=== PATIENT | female | born 1960 | race African-American/Black ===

== ENCOUNTER 2016-10-13 14:09 | Emergency (ER) | payer MEDICARE, OTHER ==
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
[2016-10-13 16:13] VITALS: BP 170/86
== END 2016-10-13 16:11 | disposition home or self-care (01) ==
LOC: ER 14:09 → EDBD 14:09 → ER 16:11
DX: M54.2 Cervicalgia (principal); M54.9 Dorsalgia, unspecified; M25.569 Pain in unspecified knee; I10 Essential (primary) hypertension; E11.9 Type 2 diabetes mellitus without complications; V87.7XXA Person injured in collision between other specified motor vehicles (traffic), initial encounter
CPT/HCPCS: 72050; 99284

== ENCOUNTER 2017-01-15 00:23 | Emergency (ER) | payer OTHER, MEDICARE ==
[2017-01-15] MEDS ORDERED: OXYCODONE-ACETAMINOPHEN 5-325 MG TABLET PO ONE (01:51)
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
[2017-01-15] MEDS ORDERED: HYDROCODONE/ACETAMINOPHEN 5-325 MG 6 TAB/DSPK PO PRN (02:49)
--- NOTE | 2017-01-15 02:49 | RADIOLOGY REPORT (SQ) ---
EXAM DESCRIPTION: ANKLE RIGHT COMPLETE COMPLETED DATE/TIME: 01/15/2017 2:40 am REASON FOR STUDY: injury COMPARISON: None. NUMBER OF VIEWS: Three views. TECHNIQUE: AP, lateral, and oblique radiographic images acquired of the right ankle. LIMITATIONS: None. FINDINGS: MINERALIZATION: Normal. BONES: No acute fracture or dislocation. No worrisome bone lesions. Small plantar faucial enthesoph yte. JOINTS: No effusions. SOFT TISSUES: Mild diffuse ankle swelling. OTHER: No other significant finding. IMPRESSION: Mild swelling. TECHNICAL DOCUMENTATION: JOB ID: [id number] [employer]- All Rights Reserved
--- NOTE | 2017-01-15 02:50 | RADIOLOGY REPORT (SQ) ---
EXAM DESCRIPTION: WRIST RIGHT 3 VIEWS COMPLETED DATE/TIME: 01/15/2017 2:40 am REASON FOR STUDY: injury COMPARISON: None. NUMBER OF VIEWS: Three views. TECHNIQUE: AP, lateral, and oblique radiographic images acquired of the right wrist. LIMITATIONS: None. FINDINGS: MINERALIZATION: Normal. BONES: No acute fracture or dislocation. No worrisome bone lesions. Normal alignment. Small subcho ndral degenerative cyst or chronic erosion of the lunate at the scapholunate joint. SOFT TISSUES: No soft tissue swelling. No foreign body. OTHER: No other significant finding. IMPRESSION: No acute findings. 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 TECHNICAL DOCUMENTATION: JOB ID: [id number] [employer]- All Rights Reserved
[2017-01-15] MEDS ORDERED: METOCLOPRAMIDE HCL ORAL SOLN 10 MG/10 ML UDCUP PO ONE (02:55)
[2017-01-15] MEDS ORDERED: MAG HYDROX/AL HYDROX/SIMETH SUSP 30 ML UDCUP PO ONE (02:55)
[2017-01-15] MEDS ORDERED: LIDOCAINE 2% VISCOUS SOLN 20 ML UDCUP PO ONE (02:55)
[2017-01-15 03:04] VITALS: BP 140/80
== END 2017-01-15 03:05 | disposition home or self-care (01) ==
LOC: ER 00:23
DX: S16.1XXA Strain of muscle, fascia and tendon at neck level, initial encounter (principal); S63.501A Unspecified sprain of right wrist, initial encounter; S93.401A Sprain of unspecified ligament of right ankle, initial encounter; V89.2XXA Person injured in unspecified motor-vehicle accident, traffic, initial encounter; I10 Essential (primary) hypertension; E11.9 Type 2 diabetes mellitus without complications; Z90.710 Acquired absence of both cervix and uterus
CPT/HCPCS: 99283; 73610; 73110; L3984

== ENCOUNTER 2017-02-19 11:26 | Emergency (ER) | payer MEDICARE, OTHER ==
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
[2017-02-19 12:13] LABS: APPEARANCE,URINE CLOUDY; BILIRUBIN,URINE NEGATIVE (NEGATIVE); GLUCOSE, URINE >=500 mg/dL (NEGATIVE); KETONES,URINE TRACE mg/dL (NEGATIVE); LEUKOCYTE ESTERASE,URINE SMALL (NEGATIVE); NITRITE,URINE NEGATIVE (NEGATIVE); PROTEIN,URINE 100 mg/dL (NEGATIVE); URINE SPECIFIC GRAVITY 1.029; UROBILINOGEN,URINE NEGATIVE mg/dL (<2.0)
[2017-02-19] MEDS ORDERED: CEFTRIAXONE INJ 1000 MG VIAL IM ONE (12:24)
[2017-02-19] MEDS ORDERED: AMOXICILLIN TR/POT CLAVULANATE 500-125 MG TAB PO ONE (12:27)
[2017-02-19] MEDS ORDERED: LIDOCAINE 1% INJ-PF (10 MG/ML) 30 ML SDV INJ ONE (12:27)
[2017-02-19 13:10] VITALS: BP 176/88
== END 2017-02-19 13:07 | disposition home or self-care (01) ==
LOC: ER 11:26
DX: N39.0 Urinary tract infection, site not specified (principal); R31.9 Hematuria, unspecified; G89.29 Other chronic pain; M54.5 Low back pain; V49.9XXS Car occupant (driver) (passenger) injured in unspecified traffic accident, sequela; I10 Essential (primary) hypertension; E11.9 Type 2 diabetes mellitus without complications
CPT/HCPCS: 99283; 96372; 87086; 87088; 81001; 87186; A9270; J3490; J0696

== ENCOUNTER 2017-08-13 12:19 | Emergency (ER) | payer MEDICARE, OTHER ==
[2017-08-13] MEDS ORDERED: CLONIDINE HCL 0.2 MG TABLET PO ONE (13:04)
[2017-08-13] MEDS ORDERED: OXYCODONE-ACETAMINOPHEN 5-325 MG TABLET PO ONE (13:04)
--- NOTE | 2017-08-13 13:06 | ER Document Report ---
ED Medical Screen (RME) - General Chief Complaint: Leg Pain Stated Complaint: LEFT LEG PAIN Time Seen by Provider: 08/13/17 12:56 Mode of Arrival: Ambulatory Information source: Patient Notes: 57-year-old female presents with complaints of left foot pain. Patient denies any fevers or chills. Patient's pains been going on for 2-3 weeks admits to high blood pressure and that she takes pills twice a day I have greeted and performed a rapid initial assessment of this patient. A comprehensive ED assessment and evaluation of the patient, analysis of test results and completion of the medical decision making process will be conducted by additional ED providers. PHYSICAL EXAMINATION: GENERAL: Well-appearing, well-nourished and in no acute distress. HEAD: Atraumatic, normocephalic. EYES: Pupils equal round extraocular movements intact, conjunctiva are normal. ENT: Nares patent NECK: Normal range of motion LUNGS: No respiratory distress Musculoskeletal: tender left foot NEUROLOGICAL: Normal speech, normal gait. PSYCH: Normal mood, normal affect. SKIN: Warm, Dry, normal turgor, no rashes or lesions noted. TRAVEL OUTSIDE OF THE [place] IN LAST 30 DAYS: No - Related Data Allergies/Adverse Reactions: No Known Allergies Allergy (Verified 08/13/17 12:22) Past Medical History - Social History Frequency of alcohol use: None Drug Abuse: None - Past Medical History Cardiac Medical History: Reports: Hx Hypertension Endocrine Medical History: Reports: Hx Diabetes Mellitus Type 2 Renal/ Medical History: Denies: Hx Peritoneal Dialysis Past Surgical History: Reports: Hx Appendectomy, Hx Hysterectomy, Hx Tonsillectomy - Immunizations Hx Diphtheria, Pertussis, Tetanus Vaccination: Yes Physical Exam - Vital signs Vitals: Temp Pulse Resp BP Pulse Ox 98.1 F 84 16 220/105 H 96 08/13/17 12:29 08/13/17 12:29 08/13/17 12:29 08/13/17 12:29 08/13/17 12:29 Course - Vital Signs Vital signs: Temp Pulse Resp BP Pulse Ox 98.1 F 84 18 220/105 H 96 08/13/17 12:29 08/13/17 12:29 08/13/17 12:54 08/13/17 12:29 08/13/17 12:29
--- NOTE | 2017-08-13 13:58 | ER Document Report ---
ED General - General Mode of Arrival: Ambulatory Information source: Patient TRAVEL OUTSIDE OF THE [place] IN LAST 30 DAYS: No - HPI Onset: Other <IRINA CHANG - Last Filed: 08/13/17 14:04> <GÉNESIS HORTON - Last Filed: 08/13/17 15:57> - General Chief Complaint: Leg Pain Stated Complaint: LEFT LEG PAIN Time Seen by Provider: 08/13/17 12:56 Notes: Patient is a 57 year old female with a history of hypertension, diabetes, and hyperlipidemia presents to the emergency department complaining of left foot pain onset 3 weeks ago worsening 1 week ago. Patient states that the pain extends from her left hip and into her left leg. Patient also complained of left sided back pain. (IRINA CHANG) - Related Data Allergies/Adverse Reactions: No Known Allergies Allergy (Verified 08/13/17 12:22) Past Medical History - General Information source: Patient - Social History Smoking Status: Never Smoker Frequency of alcohol use: None Drug Abuse: None Family History: Reviewed & Not Pertinent Patient has suicidal ideation: No Patient has homicidal ideation: No - Past Medical History Cardiac Medical History: Reports: Hx Hypertension Endocrine Medical History: Reports: Hx Diabetes Mellitus Type 2 Past Surgical History: Reports: Hx Appendectomy, Hx Hysterectomy, Hx Tonsillectomy - Immunizations Hx Diphtheria, Pertussis, Tetanus Vaccination: Yes <IRINA CHANG - Last Filed: 08/13/17 14:04> Review of Systems - Review of Systems Constitutional: No symptoms reported EENT: No symptoms reported Cardiovascular: No symptoms reported Respiratory: No symptoms reported Gastrointestinal: No symptoms reported Genitourinary: No symptoms reported Female Genitourinary: No symptoms reported Musculoskeletal: See HPI, Back pain Skin: No symptoms reported Hematologic/Lymphatic: No symptoms reported Neurological/Psychological: No symptoms reported -: Yes All other systems reviewed and negative <IRINA CHANG - Last Filed: 08/13/17 14:04> Physical Exam - General General appearance: Appears well, Alert, Other - Patient appears drowsy at bedside. In distress: None - HEENT Head: Normocephalic, Atraumatic Eyes: Normal Conjunctiva: Normal Pupils: PERRL - Respiratory Respiratory status: No respiratory distress - Cardiovascular Rhythm: Regular Heart sounds: Normal auscultation - Abdominal Inspection: Normal - Back Back: Tender - tender to the left lateral scapula - Extremities General upper extremity: Normal ROM General lower extremity: Tender Foot: Tender - tender to left metatarsal head with no swelling - Neurological Neuro grossly intact: Yes Cognition: Normal Orientation: AAOx4 [place] Coma Scale Eye Opening: Spontaneous [place] Coma Scale Verbal: Oriented [place] Coma Scale Motor: Obeys Commands Mojgan Coma Scale Total: 15 Speech: Normal - Psychological Associated symptoms: Normal affect, Normal mood - Skin Skin Temperature: Warm Skin Moisture: Dry Skin Color: Normal <IRINA CHANG - Last Filed: 08/13/17 14:04> <GÉNESIS HORTON - Last Filed: 08/13/17 15:57> - Vital signs Vitals: Temp Pulse Resp BP Pulse Ox 98.1 F 84 16 220/105 H 96 08/13/17 12:29 08/13/17 12:29 08/13/17 12:29 08/13/17 12:29 08/13/17 12:29 - Extremities Notes: Patient screams when palpating anywhere on left leg, particularly the fasica deb. (IRINA CHANG) Course - Laboratory Result Diagrams: 08/13/17 14:05 08/13/17 14:05 <GÉNESIS HOTRON - Last Filed: 08/13/17 15:57> - Vital Signs Vital signs: Temp Pulse Resp BP Pulse Ox 98.6 F 77 65 H 110/68 97 08/13/17 13:14 08/13/17 13:14 08/13/17 15:31 08/13/17 15:31 08/13/17 13:14 - Laboratory Laboratory results interpreted by me: 08/13/17 14:05 BUN 23 H Glucose 213 H AST 13 L Discharge <IRINA CHANG - Last Filed: 08/13/17 14:04> <GÉNESIS HORTON - Last Filed: 08/13/17 15:57> - Discharge Clinical Impression: Musculoskeletal pain of left lower extremity, Dehydration Muscle strain of scapular region Qualifiers: Encounter type: initial encounter Laterality: left Qualified Code(s): S46.912A - Strain of unspecified muscle, fascia and tendon at shoulder and upper arm level, left arm, initial encounter Condition: Stable Disposition: HOME, SELF-CARE Additional Instructions: Muscle Strain You have PROBABLY strained muscles in your left lateral scapular region and your left leg and foot. The seriousness of a strain varies. Some strains heal within days, others cause problems for months. X-rays cannot show a muscle strain. X-rays are taken only if symptoms suggest that a fracture could be present. The usual treatment of a muscle strain is rest and moist heat. The muscle can be used again once pain subsides. Severe strains require a special exercise and stretching program to prevent permanent stiffness and disability. Your doctor will advise you if this will be necessary. Call the doctor immediately if pain or swelling becomes severe, or if numbness or discoloration develop. Dehydration Dehydration can result from vomiting or diarrhea, fever, or decreased intake of fluids. If severe, hospitalization and intravenous fluids may be required. Most cases are treated at home with fluids by mouth. For the next 24 hours, drink lots of clear fluids. Try to get three liters (3 quarts) of fluid per day. //////////////////////////////////////////////////////////////////////////////// //////////////////////////////////////////////////////////////////////////////// ///////////////// The pain in your left scapular region and left lower extremity appears to be due to muscular strain. Your blood pressure dropped quite a bit when you received medication for pain and your elevated blood pressure. This occurred because you are somewhat dehydrated. You should drink plenty of fluids today and tonight. You should rest the muscles in the leg and in your left upper back. Limit walking and do any lifting you need to using the right arm. You are prescribed Tramadol for the pain if needed. Be sure to check your blood sugars regularly. Follow-up with your primary care provider if you are not improving. RETURN TO THE EMERGENCY ROOM IF ANY NEW OR WORSENING SYMPTOMS. Prescriptions: Tramadol HCl 50 mg PO ASDIR PRN #20 tablet PRN Reason: For Pain Referrals: KIANNA MEADE MD [Primary Care Provider] - Follow up as needed Scribe Attestation: 08/13/17 14:20 I personally performed the services described in the documentation, reviewed and edited the documentation which was dictated to the scribe in my presence, and it accurately records my words and actions. (GÉNESIS HORTON) Scribe Documentation - Scribe Written by Scribe:: Keina Michelle, 08/13/2017 14:05 acting as scribe for :: Kane <IRINA CHANG - Last Filed: 08/13/17 14:04>
[2017-08-13 14:19] LABS: ABSOLUTE EOSINOPHILS # (AUTO) 0.1 10^3/uL (0.0-0.6); ABSOLUTE LYMPHOCYTES (AUTO) 2.1 10^3/uL (0.5-4.7); ABSOLUTE MONOCYTES (AUTO) 0.2 10^3/uL (0.1-1.4); ABSOLUTE NEUT (AUTO) 3.4 10^3/uL (1.7-8.2); BASOPHILS % (AUTO) 0.7 % (0-2); EOSINOPHILS % (AUTO) 1.5 % (0-6); HEMATOCRIT 37.4 % (36.0-47.0); HEMOGLOBIN 12.8 g/dL (12.0-15.5); LYMPHOCYTES % (AUTO) 36.3 % (13-45); MEAN CORPUSCULAR HEMOGLOBIN 27.4 pg (27.0-33.4); MEAN CORPUSCULAR HGB CONC 34.3 g/dL (32.0-36.0); MEAN CORPUSCULAR VOLUME 80 fl (80-97); MONOCYTES % (AUTO) 3.6 % (3-13); RED BLOOD COUNT 4.68 10^6/uL (3.72-5.28); RED CELL DISTRIBUTION WIDTH 13.4 % (11.5-14.0); SEGMENTED NEUTROPHILS % (AUTO) 57.9 % (42-78); WHITE BLOOD COUNT 5.8 10^3/uL (4.0-10.5)
[2017-08-13] MEDS ORDERED: NORMAL SALINE 1000 ML 1,000 ML IV ONE ×2 (14:33→15:41)
[2017-08-13 14:38] LABS: ALANINE AMINOTRANSFERASE 24 U/L (9-52); ALBUMIN 4.3 g/dL (3.5-5.0); ALKALINE PHOSPHATASE 106 U/L (38-126); ANION GAP 11 (5-19); ASPARTATE AMINO TRANSFERASE 13 U/L (14-36); BILIRUBIN,DIRECT 0.3 mg/dL (0.0-0.4); BILIRUBIN,TOTAL 0.5 mg/dL (0.2-1.3); BLOOD UREA NITROGEN 23 mg/dL (7-20); CARBON DIOXIDE 27 mmol/L (22-30); CHLORIDE 102 mmol/L (98-107); CREATINE KINASE 50 U/L (30-135); GLUCOSE 213 mg/dL (75-110); POTASSIUM 4.9 mmol/L (3.6-5.0); SODIUM 139.8 mmol/L (137-145); TOTAL PROTEIN 7.6 g/dL (6.3-8.2); URIC ACID 3.6 mg/dL (2.5-7.5)
[2017-08-13 17:16] VITALS: BP 133/79
== END 2017-08-13 17:17 | disposition home or self-care (01) ==
LOC: ER 12:19
DX: S46.912A Strain of unspecified muscle, fascia and tendon at shoulder and upper arm level, left arm, initial encounter (principal); E86.0 Dehydration; M79.605 Pain in left leg; I10 Essential (primary) hypertension; E11.9 Type 2 diabetes mellitus without complications; E78.5 Hyperlipidemia, unspecified; M79.672 Pain in left foot; M25.552 Pain in left hip; M54.9 Dorsalgia, unspecified; X58.XXXA Exposure to other specified factors, initial encounter
CPT/HCPCS: 99283; 96360; 96361; 36415; 82550; 84550; 85025; 80053; A9270 ×2; J7030

== ENCOUNTER 2017-08-25 08:45 | Emergency (ER) | payer MEDICARE ==
[2017-08-25 08:55] VITALS: BP 168/114
[2017-08-25] MEDS ORDERED: HYDROCODONE/ACETAMINOPHEN 5-325 MG TABLET PO ONE (10:42)
[2017-08-25] MEDS ORDERED: LISINOPRIL 5 MG TABLET PO ONE (10:42)
[2017-08-25] MEDS ORDERED: PREDNISONE 20 MG TABLET PO ONE (10:42)
[2017-08-25 21:41] LABS: ABSOLUTE EOSINOPHILS # (AUTO) 0.1 10^3/uL (0.0-0.6); ABSOLUTE LYMPHOCYTES (AUTO) 1.9 10^3/uL (0.5-4.7); ABSOLUTE MONOCYTES (AUTO) 0.2 10^3/uL (0.1-1.4); ABSOLUTE NEUT (AUTO) 3.9 10^3/uL (1.7-8.2); BASOPHILS % (AUTO) 0.8 % (0-2); EOSINOPHILS % (AUTO) 1.3 % (0-6); HEMATOCRIT 37.6 % (36.0-47.0); HEMOGLOBIN 12.9 g/dL (12.0-15.5); MEAN CORPUSCULAR HEMOGLOBIN 27.9 pg (27.0-33.4); MEAN CORPUSCULAR HGB CONC 34.4 g/dL (32.0-36.0); MEAN CORPUSCULAR VOLUME 81 fl (80-97); MONOCYTES % (AUTO) 3.2 % (3-13); PLATELET COUNT 203 10^3/uL (150-450); RED BLOOD COUNT 4.64 10^6/uL (3.72-5.28); RED CELL DISTRIBUTION WIDTH 13.1 % (11.5-14.0); SEGMENTED NEUTROPHILS % (AUTO) 63.7 % (42-78); TOTAL CELLS COUNTED % (AUTO) 100 %; WHITE BLOOD COUNT 6.2 10^3/uL (4.0-10.5)
--- NOTE | 2017-08-26 08:30 | ER Document Report ---
ED General - General Chief Complaint: Leg Pain Stated Complaint: LEFT LEG PAIN Time Seen by Provider: 08/25/17 09:22 Mode of Arrival: Ambulatory Information source: Patient Notes: 57-year-old female presents with 2 separate complaints. Patient notes that her left foot pain has been ongoing now for a few days as well as right upper quadrant abdominal pain over the past 4 days. It is noted that the patient actually has neuropathy and has had foot pain for years but she does not admit to this initially, patient's abdominal pain has been on and off for a week TRAVEL OUTSIDE OF THE [place] IN LAST 30 DAYS: No - HPI Onset: Other Onset/Duration: Intermittent Quality of pain: Burning Severity: Mild Pain Level: 1 Associated symptoms: Other Exacerbated by: Denies Relieved by: Denies Similar symptoms previously: Yes Recently seen / treated by doctor: Yes - Related Data Allergies/Adverse Reactions: ibuprofen [From Motrin] Allergy (Verified 08/25/17 08:47) Past Medical History - Social History Smoking Status: Never Smoker Cigarette use (# per day): No Chew tobacco use (# tins/day): No Smoking Education Provided: No Family History: Reviewed & Not Pertinent - Past Medical History Cardiac Medical History: Reports: Hx Hypertension Endocrine Medical History: Reports: Hx Diabetes Mellitus Type 2 Renal/ Medical History: Denies: Hx Peritoneal Dialysis Past Surgical History: Reports: Hx Appendectomy, Hx Hysterectomy, Hx Tonsillectomy - Immunizations Hx Diphtheria, Pertussis, Tetanus Vaccination: Yes Review of Systems - Review of Systems Notes: REVIEW OF SYSTEMS: CONSTITUTIONAL : Denies fever, chills, or sweats. Denies recent illness. EENT: Denies eye, ear, throat, or mouth pain or symptoms. Denies nasal or sinus congestion or discharge. Denies throat, tongue, or mouth swelling or difficulty swallowing. CARDIOVASCULAR: Denies chest pain. Denies palpitations or racing or irregular heart beat. Denies ankle edema. RESPIRATORY: Denies cough, cold, or chest congestion. Denies shortness of breath, difficulty breathing, or wheezing. GASTROINTESTINAL: Admits to right upper quadrant abdominal pain GENITOURINARY: Denies difficulty urinating, painful urination, burning, frequency, blood in urine, or discharge. FEMALE GENITOURINARY: Denies vaginal bleeding, heavy or abnormal periods, irregular periods. Denies vaginal discharge or odor. MUSCULOSKELETAL: Admits left foot pain SKIN: Denies rash, lesions or sores. HEMATOLOGIC : Denies easy bruising or bleeding. LYMPHATIC: Denies swollen, enlarged glands. NEUROLOGICAL: Denies confusion or altered mental status. Denies passing out or loss of consciousness. Denies dizziness or lightheadedness. Denies headache. Denies weakness or paralysis or loss of use of either side. Denies problems with gait or speech. Denies sensory loss, numbness, or tingling. Denies seizures. PSYCHIATRIC: Denies anxiety or stress. Denies depression, suicidal ideation, or homicidal ideation. ALL OTHER SYSTEMS REVIEWED AND NEGATIVE. PHYSICAL EXAMINATION: GENERAL: Well-appearing, well-nourished and in no acute distress. HEAD: Atraumatic, normocephalic. EYES: Pupils equal round and reactive to light, extraocular movements intact, conjunctiva are normal. ENT: Nares patent, oropharynx clear without exudates. Moist mucous membranes. NECK: Normal range of motion, supple without lymphadenopathy LUNGS: Breath sounds clear to auscultation bilaterally and equal. No wheezes rales or rhonchi. HEART: Regular rate and rhythm without murmurs ABDOMEN: Soft, nontender, nondistended abdomen. No guarding, no rebound. No masses appreciated. No tenderness upon palpation Female : deferred Musculoskeletal: Normal range of motion, no pitting or edema. No cyanosis. NEUROLOGICAL: Cranial nerves grossly intact. Normal speech, normal gait. Normal sensory, motor exams PSYCH: Normal mood, normal affect. SKIN: Warm, Dry, normal turgor, no rashes or lesions noted. Patient states there is pain upon palpation of the foot Dictation was performed using [employer] voice recognition software Physical Exam - Vital signs Vitals: Temp Pulse Resp BP Pulse Ox 98.5 F 80 16 168/114 H 93 08/25/17 08:53 08/25/17 08:53 08/25/17 08:53 08/25/17 08:53 08/25/17 08:53 Course - Re-evaluation Re-evalutation: 08/26/17 08:29 Pulses are intact patient is able to move her digits sensation motor functions appropriate but patient states that is extremely painful upon touch. I extremely low suspicion for any life-threatening issues, on her lab work everything was benign this was consistent with previous lab work from a few days ago. Patient consistently asked for pain medication was given such. It appears she has been treated extensively for this neuropathic pain which initially denied I will have the patient follow-up with her primary care physician, her pain specialist, and her neurologist for further evaluation care After performing a Medical Screening Examination, I estimate there is LOW risk for ACUTE APPENDICITIS, BOWEL OBSTRUCTION, ACUTE CHOLECYSTITIS, PERFORATED DIVERTICULITIS, INCARCERATED HERNIA, PANCREATITIS, PELVIC INFLAMMATORY DISEASE, PERFORATED ULCER, ECTOPIC , or TUBO-OVARIAN ABSCESS, thus I consider the discharge disposition reasonable. Also, there is no evidence or peritonitis , sepsis, or toxicity. I have reevaluated this patient multiple times and no significant life threatening changes are noted. The patient and I have discussed the diagnosis and risks, and we agree with discharging home with close follow-up with the understanding that symptoms and presentations can change. We also discussed returning to the Emergency Department immediately if new or worsening symptoms occur. We have discussed the symptoms which are most concerning (e.g., bloody stool, fever, changing or worsening pain, vomiting) that necessitate immediate return. - Vital Signs Vital signs: Temp Pulse Resp BP Pulse Ox 98.5 F 80 16 168/114 H 93 08/25/17 08:53 08/25/17 08:53 08/25/17 08:53 08/25/17 08:53 08/25/17 08:53 - Laboratory Result Diagrams: 08/25/17 10:43 08/25/17 10:43 Discharge - Discharge Clinical Impression: Abdominal pain, right upper quadrant, Left foot pain Condition: Stable Disposition: HOME, SELF-CARE Instructions: Abdominal Pain ([facility]) Referrals: KIANNA MEADE MD [Primary Care Provider] - Follow up tomorrow
[2017-08-26 11:42] LABS: ALBUMIN 4.2 g/dL (3.5-5.0); ANION GAP 10 (5-19); BLOOD UREA NITROGEN 14 mg/dL (7-20); CALCIUM 9.5 mg/dL (8.4-10.2); CARBON DIOXIDE 30 mmol/L (22-30); CHLORIDE 102 mmol/L (98-107); GLUCOSE 196 mg/dL (75-110); POTASSIUM 3.9 mmol/L (3.6-5.0); SODIUM 141.7 mmol/L (137-145)
[2017-08-26 11:43] LABS: ALANINE AMINOTRANSFERASE 27 U/L (9-52); ALKALINE PHOSPHATASE 96 U/L (38-126); ASPARTATE AMINO TRANSFERASE 13 U/L (14-36); BILIRUBIN,DIRECT 0.2 mg/dL (0.0-0.4); BILIRUBIN,TOTAL 0.6 mg/dL (0.2-1.3)
[2017-08-26 11:44] LABS: TOTAL PROTEIN 7.4 g/dL (6.3-8.2)
[2017-08-26 12:55] LABS: LIPASE 339.2 U/L (23-300)
== END 2017-08-25 13:00 | disposition home or self-care (01) ==
LOC: ER 08:45
DX: R10.11 Right upper quadrant pain (principal); M79.672 Pain in left foot; I10 Essential (primary) hypertension; E11.9 Type 2 diabetes mellitus without complications; Z88.6 Allergy status to analgesic agent; Z90.710 Acquired absence of both cervix and uterus
CPT/HCPCS: 99283; 36415; 83690; 85025; 80053; A9270 ×3; J7512

== ENCOUNTER → 2017-09-11 | Outpatient (CLI) | payer MEDICARE ==
--- NOTE | 2017-09-11 16:05 | WOMENS IMAGING REPORT ---
EXAM DESCRIPTION: BILAT SCREENING MAMMO W/CAD COMPLETED DATE/TIME: 09/11/2017 3:33 pm REASON FOR STUDY: ROUTINE SCREENING; Z12.31 Z12.31 ENCNTR SCREEN MAMMOGRAM FOR MALIGNANT NEOPLASM O F MARISSA COMPARISON: 02/25/2013 and 07/01/2010. TECHNIQUE: Standard craniocaudal and mediolateral oblique views of each breast recorded using digita l acquisition. LIMITATIONS: None. FINDINGS: No masses, calcifications or architectural distortion. No areas of suspicion. Read with the assistance of CAD. .[facility] - R2 Cenova Version 1.3 .[facility] - R2 Cenova Version 1.3 .[facility] - R2 Cenova Version 2.4 .[facility] - R2 Cenova Version 2.4 .[facility] - R2 [employer] Machine Operator Version 9.2 IMPRESSION: NORMAL MAMMOGRAM. BIRADS 1. BREAST DENSITY: b. There are scattered areas of fibroglandular density. BIRAD: 1 NEGATIVE RECOMMENDATION: ROUTINE SCREENING COMMENT: The patient has been notified of the results by letter per MQSA requirements. Additional no tification policies are in place for contacting patient with suspicious or incomplete findings. Quality ID #[id number]: The [employer] recommends an annual screening mammogram for women aged 40 years or over. This facility utilizes a reminder system to ensure that all patients receive reminder letters, and/or direct phone calls for appointments. This includes reminders for routine scr eening mammograms, diagnostic mammograms, or other Breast Imaging Interventions when appropriate. Th is patient will be placed in the appropriate reminder system. The [employer] (ACR) has developed recommendations for screening MRI of the breast s in certain patient populations, to be used in conjunction with mammography. Breast MRI surveillanc e may be appropriate for women with more than 20% lifetime risk of developing breast cancer as deter mined by genetic testing, significant family history of the disease, or history of mantle radiation f or Hodgkins Disease. ACR Practice Guidelines 2008. TECHNICAL DOCUMENTATION: FINDING NUMBER: (1) ASSESSMENT: (1) JOB ID: [id number] [employer]- All Rights Reserved
== END ==
LOC: WI 15:17
PROVIDERS: ATTEND Internal Medicine
DX: Z12.31 Encounter for screening mammogram for malignant neoplasm of breast (principal)
CPT/HCPCS: 77067

== ENCOUNTER 2020-04-18 14:50 | Emergency (ER) | payer MEDICARE, OTHER ==
--- NOTE | 2020-04-18 15:36 | ER Document Report ---
ED Medical Screen (RME) - General Chief Complaint: Ear Pain Stated Complaint: EAR PAIN,NECK PAIN Time Seen by Provider: 04/18/20 15:30 Primary Care Provider: KIANNA MEADE MD [Primary Care Provider] - Follow up as needed Information source: Patient Notes: Patient presents with multiple complaints. Patient complains of bilateral ear pain with swelling to the left side of face. Patient also complains of vaginal pain and urinary frequency. Patient denies any fever or dysuria. Patient denies any nausea or vomiting. Patient reports a history of diabetes and states she has been off of medication for several months. Patient complains of lower back pain. I have greeted and performed a rapid initial assessment of this patient. A comprehensive ED assessment and evaluation of the patient, analysis of test results and completion of the medical decision making process will be conducted by additional ED providers. TRAVEL OUTSIDE OF THE [place] IN LAST 30 DAYS: No - Related Data Allergies/Adverse Reactions: ibuprofen [From Motrin] Allergy (Verified 08/25/17 08:47) Past Medical History - Social History Frequency of alcohol use: None Drug Abuse: None - Past Medical History Cardiac Medical History: Reports: Hx Hypertension Endocrine Medical History: Reports: Hx Diabetes Mellitus Type 2 Renal/ Medical History: Denies: Hx Peritoneal Dialysis Past Surgical History: Reports: Hx Appendectomy, Hx Hysterectomy, Hx Tonsillectomy - Immunizations Hx Diphtheria, Pertussis, Tetanus Vaccination: Yes Physical Exam - Vital signs Vitals: Temp Pulse Resp BP Pulse Ox 99.6 F 88 18 144/76 H 96 04/18/20 15:13 04/18/20 15:13 04/18/20 15:13 04/18/20 15:13 04/18/20 15:13 - General Notes: Swelling to left external auditory canal, pain with movement of left helix Course - Vital Signs Vital signs: Temp Pulse Resp BP Pulse Ox 99.6 F 88 18 144/76 H 96 04/18/20 15:13 04/18/20 15:13 04/18/20 15:13 04/18/20 15:13 04/18/20 15:13 Doctor's Discharge - Discharge Referrals: KIANNA MEADE MD [Primary Care Provider] - Follow up as needed
[2020-04-18 16:22] LABS: ABSOLUTE EOSINOPHILS # (AUTO) 0.1 10^3/uL (0.0-0.6); ABSOLUTE LYMPHOCYTES (AUTO) 2.1 10^3/uL (0.5-4.7); ABSOLUTE MONOCYTES (AUTO) 0.3 10^3/uL (0.1-1.4); ABSOLUTE NEUT (AUTO) 4.4 10^3/uL (1.7-8.2); BASOPHILS % (AUTO) 0.5 % (0-2); EOSINOPHILS % (AUTO) 1.4 % (0-6); HEMATOCRIT 39.3 % (36.0-47.0); HEMOGLOBIN 13.3 g/dL (12.0-15.5); MEAN CORPUSCULAR HEMOGLOBIN 28.3 pg (27.0-33.4); MEAN CORPUSCULAR HGB CONC 33.9 g/dL (32.0-36.0); MEAN CORPUSCULAR VOLUME 84 fl (80-97); MONOCYTES % (AUTO) 4.3 % (3-13); PLATELET COUNT 189 10^3/uL (150-450); RED BLOOD COUNT 4.71 10^6/uL (3.72-5.28); RED CELL DISTRIBUTION WIDTH 13.2 % (11.5-14.0); SEGMENTED NEUTROPHILS % (AUTO) 63.8 % (42-78); TOTAL CELLS COUNTED % (AUTO) 100 %; WHITE BLOOD COUNT 6.9 10^3/uL (4.0-10.5)
[2020-04-18 16:24] LABS: VENOUS BLOOD BASE EXCESS 0.2 mmol/L; VENOUS BLOOD HCO3 27.1 mmol/L (20-32); VENOUS BLOOD PH 7.33 (7.30-7.42)
[2020-04-18 16:32] LABS: APPEARANCE,URINE SLIGHTLY-CLOUDY; BILIRUBIN,URINE NEGATIVE (NEGATIVE); COLOR,URINE YELLOW; GLUCOSE, URINE >=500 mg/dL (NEGATIVE); KETONES,URINE NEGATIVE (NEGATIVE); LEUKOCYTE ESTERASE,URINE TRACE (NEGATIVE); NITRITE,URINE NEGATIVE (NEGATIVE); PROTEIN,URINE NEGATIVE (NEGATIVE); URINE SPECIFIC GRAVITY 1.036; UROBILINOGEN,URINE NEGATIVE mg/dL (<2.0)
[2020-04-18 16:45] LABS: ALKALINE PHOSPHATASE 162 U/L (38-126); ANION GAP 9 (5-19); ASPARTATE AMINO TRANSFERASE 20 U/L (14-36); BILIRUBIN,DIRECT 0.2 mg/dL (0.0-0.4); BILIRUBIN,TOTAL 0.8 mg/dL (0.2-1.3); BLOOD UREA NITROGEN 14 mg/dL (7-20); CARBON DIOXIDE 27 mmol/L (22-30); CHLORIDE 97 mmol/L (98-107); POTASSIUM 4.6 mmol/L (3.6-5.0); TOTAL PROTEIN 7.4 g/dL (6.3-8.2)
[2020-04-18 17:02] LABS: GLUCOSE 444 mg/dL (75-110)
[2020-04-18] MEDS ORDERED: INSULIN REG, HUMAN 100 UNIT/ML 3 ML VIAL (PYX) IV ONE (20:10)
[2020-04-18] MEDS ORDERED: INSULIN REG, HUMAN 100 UNIT/ML 3 ML VIAL (PYX) SUBCUT ONE (20:21)
[2020-04-18] MEDS ORDERED: TRAMADOL HCL 50 MG TABLET PO ONE (20:22)
[2020-04-18] MEDS ORDERED: FLUCONAZOLE 100 MG TABLET PO ONE (20:22)
[2020-04-18] MEDS ORDERED: NEOMY SULF/POLYMYX B SULF/HC OTIC SUSP 10 ML AS ONE (20:22)
--- NOTE | 2020-04-18 20:28 | ER Document Report ---
ED General - General Chief Complaint: Ear Pain Stated Complaint: EAR PAIN,NECK PAIN Time Seen by Provider: 04/18/20 15:30 Primary Care Provider: KIANNA MEADE MD [Primary Care Provider] - Follow up as needed TRAVEL OUTSIDE OF THE [place] IN LAST 30 DAYS: No - HPI Notes: Patient is a 60-year-old female who presents to the emergency department for evaluation of multiple complaints. She complains of left ear pain. She states is been going on for little over a week. She denies any difficulty hearing, no tinnitus. She states she might of had a fever, but really has not checked her temperature. No chills. No cough, no sore throat, although she states the pain refers into her throat on occasion. She also has some neck pain. She states this is chronic. No new injuries. No numbness or tingling in her arms. She used to be on Ultram for this, but cannot afford to go see her doctor. The patient also states her blood sugars have been high. She is usually on metfor min twice daily, but has been off of this for several months. She also states she is been having itching in her vaginal area. She states she uses an [id number] yeast medication, it seems to improve, then it comes back. She really has not tried anything to help her with her pain in her ear or her neck, she states she is allergic to ibuprofen. - Related Data Allergies/Adverse Reactions: ibuprofen [From Motrin] Allergy (Verified 04/18/20 19:01) Past Medical History - General Information source: Patient - Social History Smoking Status: Never Smoker Frequency of alcohol use: None Drug Abuse: None Family History: Reviewed & Not Pertinent - Past Medical History Cardiac Medical History: Reports: Hx Hypercholesterolemia, Hx Hypertension Endocrine Medical History: Reports: Hx Diabetes Mellitus Type 2 Renal/ Medical History: Denies: Hx Peritoneal Dialysis Past Surgical History: Reports: Hx Appendectomy, Hx Hysterectomy, Hx Tonsillectomy - Immunizations Hx Diphtheria, Pertussis, Tetanus Vaccination: Yes Review of Systems - Review of Systems Constitutional: See HPI EENT: See HPI Cardiovascular: No symptoms reported Respiratory: No symptoms reported Gastrointestinal: No symptoms reported Genitourinary: No symptoms reported Female Genitourinary: See HPI Musculoskeletal: See HPI Skin: No symptoms reported Neurological/Psychological: No symptoms reported Physical Exam - Vital signs Vitals: Temp Pulse Resp BP Pulse Ox 99.6 F 88 18 144/76 H 96 04/18/20 15:13 04/18/20 15:13 04/18/20 15:13 04/18/20 15:13 04/18/20 15:13 - Notes Notes: Vital signs reviewed, please refer to chart. Head is normocephalic, atraumatic. Pupils equal round, reactive to light. Right external auditory canal is normal. Bilateral TMs are pearly ba with good light reflex. Left external auditory canal is edematous with a small amount of adherent purulence noted at the 10 o'clock position. Positive tragus tenderness. Oral mucosa is moist. No pharyngeal erythema or exudate. Neck is supple without meningismus. Examination of the spine yields no midline tenderness or step-off. No paraspinal musculature tenderness is appreciated. Heart is regular rate and rhythm. Lungs are clear to auscultation bilaterally. Abdomen is soft, nontender, normoactive bowel sounds throughout. Extremities without cyanosis, clubbing. Posterior calves are nontender. Peripheral pulses are equal. Skin is warm and dry. Patient is awake, alert, neurological exam is nonfocal. Course - Re-evaluation Re-evalutation: 04/18/20 20:27 Patient presents to the emergency department for evaluation. She had laboratory investigations as ordered through triage. She is markedly hyperglycemic, but not acidotic. This is not surprising given the fact that she has been off her medication for some time. I suspect that she has Tabby as a result of the glycosuria from her hyperglycemia. Patient was educated on this. She was educated on jordan diabetic diet decisions. I explained to her the importance of following up with her primary care provider, she voiced understanding. She was given subcutaneous insulin here. She is also treated with Cortisporin otic for her left otitis externa. She was given Diflucan for Tabby. She was given Ul tram for her neck pain. I am not going to prescribe her any Ultram, I think she should follow-up with her primary care provider for chronic pain medications. Otherwise I will write her a prescription for metformin and lisinopril. The patient is unsure of the her lisinopril dose, believes it was 25 mg. I will start her on lisinopril 20 mg daily. She will be given a two-week supply and instructions that she needs to follow-up with her primary care provider. She voiced understanding will be discharged. - Vital Signs Vital signs: Temp Pulse Resp BP Pulse Ox 99.6 F 88 18 144/76 H 96 04/18/20 15:13 04/18/20 15:13 04/18/20 15:13 04/18/20 15:13 04/18/20 15:13 - Laboratory Result Diagrams: 04/18/20 16:06 04/18/20 16:06 Laboratory results interpreted by me: 04/18/20 04/18/20 16:06 16:06 Sodium 132.7 L Chloride 97 L Glucose 444 H* Alkaline Phosphatase 162 H Urine Glucose (UA) >=500 H Ur Leukocyte Esterase TRACE H Discharge - Discharge Clinical Impression: Chronic neck pain, Vaginal candidiasis Left otitis externa Qualifiers: Otitis externa type: unspecified type Chronicity: acute Qualified Code(s): H60.502 - Unspecified acute noninfective otitis externa, left ear Hyperglycemia due to type 2 diabetes mellitus Qualifiers: Diabetes mellitus terminal clerk insulin use: without mcfp use Qualified Code(s): E11.65 - Type 2 diabetes mellitus with hyperglycemia Condition: Stable Disposition: HOME, SELF-CARE Instructions: Use of Ear Drops ([facility]), Otitis Externa ([facility]), Diabetes ([facility]), Chronic Pain Control ([facility]), High Blood Pressure ([facility]) Additional Instructions: It is very important that you take your medications as prescribed. Use the Cortisporin otic, 4 drops in your left ear 3 times daily for 10 days. Try to avoid simple sugars in your diet as discussed. It is very important that you follow-up with your primary care provider for control of your chronic medical conditions. If you develop worsening or new concerning symptoms of any sort, please return immediately to the emergency department for reevaluation. Referrals: KIANNA MEADE MD [Primary Care Provider] - Follow up as needed
[2020-04-18 20:57] VITALS: BP 191/99
== END 2020-04-18 20:59 | disposition home or self-care (01) ==
LOC: ER 14:50
DX: B37.3 Candidiasis of vulva and vagina (principal); H60.502 Unspecified acute noninfective otitis externa, left ear; E11.65 Type 2 diabetes mellitus with hyperglycemia; M54.2 Cervicalgia; G89.29 Other chronic pain; H92.02 Otalgia, left ear; Z88.8 Allergy status to other drugs, medicaments and biological substances; I10 Essential (primary) hypertension
CPT/HCPCS: 99284; 36415; 85025; 80053; 81001; 82803; A9270 ×4; J1815; J3490